=== PATIENT | male | born 1980 | race Caucasian/White ===

== ENCOUNTER 2017-07-19 13:10 | Emergency (ER) | payer OTHER ==
[2017-07-19] MEDS: KETOROLAC 30 MG INJ IM (14:21)
== END 2017-07-19 15:43 | disposition home or self-care (01) ==
LOC: FTE 13:10
DX: M54.5 Low back pain (principal)
CPT/HCPCS: 72100; 96372; 99284-25

== ENCOUNTER 2017-08-04 08:27 | Emergency (ER) | payer OTHER | END 2017-08-04 10:27 | disposition home or self-care (01) | LOC: FTE 08:27 | DX: R07.0 Pain in throat (principal) | CPT/HCPCS: 99282; Z7502 ==

== ENCOUNTER 2017-12-02 12:45 | Emergency (ER) | payer OTHER ==
[2017-12-02] MEDS: ACETAMINOPHEN 500 MG TAB PO (14:53)
[2017-12-02] MEDS: ONDANSETRON (ODT) 4 MG TAB ODT (14:53)
== END 2017-12-02 16:17 | disposition home or self-care (01) ==
LOC: FTE 16:17
DX: S40.022A Contusion of left upper arm, initial encounter (principal); S19.9XXA Unspecified injury of neck, initial encounter; S09.90XA Unspecified injury of head, initial encounter; V43.92XA Unspecified car occupant injured in collision with other type car in traffic accident, initial encounter
CPT/HCPCS: 70450; 72100; 72125; 73060; 99284-25

== ENCOUNTER 2018-08-29 13:52 | Emergency (ER) | payer OTHER | END 2018-08-29 15:53 | disposition home or self-care (01) | LOC: FTE 13:52 | DX: L98.0 Pyogenic granuloma (principal) | CPT/HCPCS: 99282; Z7502 ==